=== PATIENT | male | born 1965 | race Caucasian/White ===

== ENCOUNTER 2018-05-12 11:18 | Day surgery (SDC) | payer OTHER ==
[2018-04-30 11:50] VITALS: BMI 29.7
[2018-05-12] MEDS ORDERED: MIDAZOLAM HCL 2 MG/2 ML SINGLE DOSE VIAL ONE (12:44)
[2018-05-12] MEDS ORDERED: ACETAMINOPHEN 325 MG TABLET (FP) PO PRN (13:27)
[2018-05-12] MEDS ORDERED: ONDANSETRON 4 MG/2 ML VIAL IVPUSH PRN (13:27)
[2018-05-12] MEDS ORDERED: oxyCODONE HCL 5 MG TABLET PO PRN ×2 (13:27)
[2018-05-12] MEDS ORDERED: LACTATED RINGERS SOLUTION 1,000 ML IV SCH (13:30)
[2018-05-12 14:04] VITALS: TEMP 97.8
[2018-05-12] MEDS ORDERED: oxyCODONE HCL 5 MG TABLET ONE (14:22)
[2018-05-12 14:32] VITALS: BP 132/79; PULSE 75
--- NOTE | 2018-05-13 16:07 | OP ---
DATE OF OPERATION: 05/12/2018 PREOPERATIVE DIAGNOSIS: Left trigger thumb. POSTOPERATIVE DIAGNOSIS: Left trigger thumb. OPERATIVE PROCEDURE: Left trigger thumb release. SURGEON: Cedric Lipscomb MD ANESTHESIA: Local with sedation. COMPLICATIONS: None. ESTIMATED BLOOD LOSS: Minimal. INDICATION FOR PROCEDURE: The patient is a 53-year-old male with the above finding, indicated for operative treatment. Risks, benefits, alternatives were discussed with the patient at length, proper informed consent was obtained. PROCEDURE: After proper identification of patient and correct operative site, the patient was brought to the operating room and placed supine on the operating table. All prominences well padded. Sedation was given by the anesthesiologist. Local anesthesia was given, 2% lidocaine. The left upper extremity was prepped and draped in the usual sterile fashion, Esmarch bandage to exsanguinate left upper extremity, tourniquet was inflated to 250 mmHg. A transverse incision was made over the thumb A1 ondina. The incision was taken sharply through the skin with blunt and sharp dissection through the subcutaneous tissues. A1 ondina was divided longitudinally, taking care to protect the digital nerves. The patient was asked to flex and extend the thumb, and no further triggering occurred. The wound was repaired with 5-0 plain gut sutures. Sterile dressings were applied. Patient was brought to the recovery room in stable condition. He tolerated procedure well. CEDRIC LIPSCOMB M.D. [id number]
== END 2018-05-12 15:00 | disposition home or self-care (01) ==
LOC: FASU 11:18
PROVIDERS: ATTEND Orthopaedic Surgery Hand Surgery
PROC: 0LN80ZZ Release Left Hand Tendon, Open Approach (ICD-10-PCS; principal; 2018-05-12 13:30)
DX: M65.312 Trigger thumb, left thumb (principal)

== ENCOUNTER 2018-06-23 09:03 | Day surgery (SDC) | payer OTHER ==
[2018-06-21 12:18] VITALS: BMI 29.7
[2018-06-23] MEDS ORDERED: MIDAZOLAM HCL 2 MG/2 ML SINGLE DOSE VIAL ONE (10:00)
[2018-06-23] MEDS ORDERED: PROPOFOL 20 ML ONE (10:00)
[2018-06-23] MEDS ORDERED: ONDANSETRON 4 MG/2 ML VIAL ONE (10:15)
[2018-06-23] MEDS ORDERED: KETOROLAC TROMETHAMINE 30 MG/1 ML VIAL ONE (10:15)
[2018-06-23] MEDS ORDERED: DEXAMETHASONE SOD PHOSPHATE 4 MG/1 ML VIAL ONE (10:15)
[2018-06-23] MEDS ORDERED: LIDOCAINE HCL 2% (50ML VIAL) NR ONE (10:18)
[2018-06-23] MEDS ORDERED: LIDOCAINE HCL/PF 2% SDV 5ML VIAL ONE (10:32)
[2018-06-23 11:06] VITALS: TEMP 97.6
[2018-06-23 11:24] VITALS: BP 124/81; PULSE 78
[2018-06-23] MEDS ORDERED: ONDANSETRON 4 MG/2 ML VIAL IVPUSH PRN (11:49)
[2018-06-23] MEDS ORDERED: PROMETHAZINE HCL 25 MG/1 ML VIAL IVPUSH PRN (11:49)
[2018-06-23] MEDS ORDERED: oxyCODONE HCL 5 MG TABLET PO PRN ×2 (11:49)
--- NOTE | 2018-06-23 16:56 | OP ---
DATE OF OPERATION: 06/23/2018 PREOPERATIVE DIAGNOSIS: Right trigger thumb. POSTOPERATIVE DIAGNOSIS: Right trigger thumb. OPERATIVE PROCEDURE: Right trigger thumb release. ANESTHESIA: Local with sedation. COMPLICATIONS: None. ESTIMATED BLOOD LOSS: Minimal. INDICATION FOR PROCEDURE: The patient is a 53-year-old male with the above finding indicated for operative treatment. Risks, benefits, and alternatives were discussed with the patient at length. Preoperative informed consent was obtained. DESCRIPTION OF PROCEDURE: After preoperative identification of the patient and correct operative site, patient was brought to the operating room and placed supine on the operating table with all prominences well padded. Sedation and local anesthesia were given. Right upper extremity was prepped and draped in the usual sterile fashion. A well-padded tourniquet was placed on the sterile prep. Esmarch bandage was used to exsanguinate the right upper extremity. Tourniquet was inflated to 250 mmHg. Transverse incision was made over the thumb A1 ondina. Incision was taken sharply through the skin with blunt dissection to subcutaneous tissues. A1 ondina was identified and divided longitudinally, carefully protecting neurovascular structures. Patient was asked to flex and extend his thumb, and no further triggering was noted. Wound was irrigated and repaired with 5-0 fast-absorbing plain gut suture. Sterile dressings were applied. He was brought to the recovery room, having tolerated the procedure well. ADRIEL LIPSCOMB M.D. [id number]
== END 2018-06-23 11:30 | disposition home or self-care (01) ==
LOC: FASU 09:03
PROVIDERS: ATTEND Orthopaedic Surgery Hand Surgery
PROC: 0LN70ZZ Release Right Hand Tendon, Open Approach (ICD-10-PCS; principal; 2018-06-23 10:27)
DX: M65.311 Trigger thumb, right thumb (principal)